=== PATIENT | male | born 1990 | race Caucasian/White ===

== ENCOUNTER → 2017-01-22 | Day surgery (SDC) | payer OTHER ==
[~2017-01-22] VITALS: Ht 182.9 cm; Wt 74.8 kg
[~2017-01-22] MED LIST: BUPIVACAINE/EPIN 0.25% 30 ML VIAL As Ordered ONE; GLYCOPYRROLATE INJ 0.2 MG/ML 2 ML VIAL As Ordered ONE; HYDROmorphone HCL 1 MG/ML SYRINGE (J1170) As Ordered ONE; IBUP200C PO; KETOROLAC 60 MG/2 ML VIAL (J1885) As Ordered ONE; LIDOCAINE 2% INJ 100 MG/5 ML SDV (FOR ANES.) As Ordered ONE; LR 1,000 ML IV SCH; MELO15TA4 PO; MIDAZOLAM INJ 2 MG/2 ML VIAL (J2250) As Ordered ONE; NEOSTIGMINE 1MG/ML 5 ML SYRINGE (J2710) As Ordered ONE; NORCO, ANEXSIA 5/325MG TABLET (HYDROcodone/ACETAMINOPHEN) PO PRN; ONDANSETRON 4MG/2ML VIAL (J2405) As Ordered ONE; ONDANSETRON 4MG/2ML VIAL (J2405) IV PRN; PROPOFOL 200 MG/20 ML VIAL As Ordered ONE; ROCURONIUM BROMIDE 50 MG/5 ML VIAL As Ordered ONE; SEVOFLURANE INHAL SOLN 250 ML BTL As Ordered ONE; TIZA1POW PO; ceFAZolin 2 GM/D5W 50 ML IV BAG (J0690) As Ordered ONE; dexameTHASONE 4 MG/ML 1ML VIAL (J1100) As Ordered ONE; fentaNYL 100 MCG/2 ML INJECTION (J3010) As Ordered ONE; fentaNYL 100 MCG/2 ML INJECTION (J3010) IV PRN
[2017-01-22] MEDS: HYDROmorphone HCL 1 MG/ML SYRINGE (J1170) IV PRN ×3 (16:16→16:35)
[2017-01-22] MEDS: PERCOCET 5MG/325MG TAB PO PRN ×2 (16:22→16:44)
[2017-01-22 19:15] VITALS: BP 107/62
--- NOTE | 2017-01-24 10:18 | RO ---
DATE OF PROCEDURE: 01/22/2017 PREOPERATIVE DIAGNOSIS: Left inguinal hernia. POSTOPERATIVE DIAGNOSIS: Left inguinal hernia. PROCEDURE: Robotic assisted left inguinal hernia repair. SURGEON: Rikki Moss DO SOLAR DESIGNER: Jacky Avila MD ANESTHESIA: General. ESTIMATED BLOOD LOSS (EBL): 5. COMPLICATION: None acute. INDICATION FOR PROCEDURE: Patient is a 26-year-old male presents with a left inguinal hernia positive on physical exam as well as ultrasound findings. Recommendation was to proceed with robotic-assisted, possible open left inguinal hernia repair. Risks and benefits of procedure not limited but including bleeding, infection, hernia recurrence, hernia formation, damage to surrounding structures, need for further surgery were discussed in detail with the patient. Informed was obtained. Procedure was planned. DESCRIPTION OF PROCEDURE: Patient brought back to operating room #7. After sufficient sedation, the abdomen was sterilely prepped and draped and a Elkins catheter was placed. Next, time-out was done to confirm proper patient, proper procedure. Following that a 5 mm incision was made at the umbilicus, Veress needle was inserted and the abdomen was insufflated to 50 mmHg. Next, a 5 mm Optiview port was used to gain access to the abdomen. Once the abdomen was entered, a camera was placed, the left groin area was examined. Next, the 8 mm da Wen port was placed on the lateral abdominal lemus on both the left and the right side under direct visualization. Following that the 5 mm port site at the umbilicus was removed and replaced with an 8 mm port site. The robot was then docked. Before any of the instruments were placed, Bard 3DMax large mesh was placed through the port into the abdomen as well as a #2-0 Vicryl suture and a V-Loc suture. Next, the instruments were placed. Adhesions were taken down from the sigmoid colon along the left pelvis wall. Once the sigmoid colon was out of the way, an incision was made into the peritoneum above the inguinal ring about 7 cm in length. Using blunt dissection and some sharp dissection, the peritoneal flaps were created both anteriorly and posteriorly, and then both medially and laterally. Once that was completed, the hernia was dissected free from the cord structures. Once that was completed posteriorly and the space was large enough to place a mesh, the Bard 3DMax large mesh was placed inside of this preperitoneal pocket. It was sutured in place at the pubic symphysis using the #2-0 Vicryl suture. Once that was completed, the V-Loc suture was used in a running fashion to re-close the peritoneal defect. Once this was completed, the sutures were cut and removed from the abdomen. The abdomen was desufflated. Port sites were removed. Skin incisions were closed for #4-0 Vicryl subcuticular sutures. The abdomen was cleaned and dried. Steri-Strips, 4 x 4 and tape were applied, thus ending procedure.
== END | disposition home or self-care (01) ==
LOC: M SDC 10:33
PROVIDERS: ATTEND Surgery
DX: K40.90 Unilateral inguinal hernia, without obstruction or gangrene, not specified as recurrent (principal); Z87.891 Personal history of nicotine dependence
CPT/HCPCS: 49650; 96374; C1781; J0690; J1100; J1170; J1885; J2250; J2405; J2710; J3010